=== PATIENT | female | born 1980 | race Caucasian/White ===

== ENCOUNTER 2022-01-10 20:59 | Outpatient (CLI) | payer BC, SELFPAY ==
[2022-01-10 19:41] LABS: TSH (W/Ref FT4) 1.24 uIU/mL (0.36-3.74)
[2022-01-13 09:16] LABS: FSH 4.9 mIU/mL (See Note)
== END 2022-01-10 21:00 | disposition home or self-care (01) ==
LOC: LBO 21:02
PROVIDERS: Visit Provider Obstetrics & Gynecology
DX: N93.8 Other specified abnormal uterine and vaginal bleeding (principal); N83.292 Other ovarian cyst, left side
CPT/HCPCS: 36415; 83001; 84146; 84443